=== PATIENT | male | born 1955 | race Two or more races ===

== ENCOUNTER 2016-12-16 17:30 | Emergency (ER) | payer MEDICARE, MEDICAID ==
[~2016-12-16] VITALS: Ht 170.2 cm; Wt 59.0 kg
[~2016-12-16 17:30] MED LIST: ASPI-231 PO; CLIN1CAP4 PO; METF-490 PO; PROBTAB12 PO; SULF-35 PO
[2016-12-16 18:21] LABS: Basophils # (auto) 0 uL; Basophils % (auto) 0.9 % (0.0-2.0); Eosinophils # (auto) 0.2 uL; Eosinophils % (auto) 5.1 % (0.0-7.0); Hematocrit 33.4 % (41.0-53.0); Hemoglobin 11.4 g/dL (13.5-17.5); Lymphocytes # (auto) 1.4 uL; Lymphocytes % (auto) 35.8 % (10.0-50.0); Mean Corpuscular Hemoglobin 28.2 pg (28.0-32.0); Mean Corpuscular Hgb Conc. 34.2 g/dL (32.0-36.0); Mean Corpuscular Volume 82.6 fL (80.0-100.0); Mean Platelet Volume 8.1 fL (7.4-10.4); Monocytes # (auto) 0.4 uL; Neutrophils # (auto) 1.9 uL; Neutrophils % (auto) 48.2 % (37.0-80.0); Platelet Count (auto) 285 10^3/uL (140-450); Red Cell Distribution Width 17.1 % (11.6-16.0)
[2016-12-16 18:39] LABS: Albumin 3.3 g/dL (3.4-5.0); BUN/Creatinine Ratio 27.8; Calcium 8.7 mg/dL (8.5-10.1); Potassium 4.3 mmol/L (3.5-5.1)
[2016-12-16 18:42] LABS: Bilirubin, Total 0.3 mg/dL (0.2-1.0)
[2016-12-16] MEDS ORDERED: KETOROLAC TROMETH 60MG/2ML VIAL IM ONE (22:30)
[2016-12-16 22:35] VITALS: BP 122/68
== END 2016-12-16 23:09 | disposition home or self-care (01) ==
LOC: ER 17:33
DX: G44.029 Chronic cluster headache, not intractable (principal); Z59.0 Homelessness; E11.9 Type 2 diabetes mellitus without complications
CPT/HCPCS: 36415; 70450; 80053; 82962; 85025; 96372; 99285; J1885

== ENCOUNTER 2017-01-11 18:18 | Emergency (ER) | payer MEDICARE, MEDICAID ==
[~2017-01-11] VITALS: Ht 170.2 cm; Wt 77.1 kg
[2017-01-11 21:47] LABS: Basophils # (auto) 0 uL; Basophils % (auto) 0.3 % (0.0-2.0); Eosinophils # (auto) 0.1 uL; Eosinophils % (auto) 2.4 % (0.0-7.0); Hematocrit 28.3 % (41.0-53.0); Hemoglobin 9.7 g/dL (13.5-17.5); Lymphocytes # (auto) 1.4 uL; Lymphocytes % (auto) 27.4 % (10.0-50.0); Mean Corpuscular Hgb Conc. 34.4 g/dL (32.0-36.0); Mean Corpuscular Volume 84.3 fL (80.0-100.0); Mean Platelet Volume 7.5 fL (7.4-10.4); Monocytes # (auto) 0.6 uL; Monocytes % (auto) 12.2 % (0.0-12.0); Neutrophils # (auto) 2.9 uL; Neutrophils % (auto) 57.7 % (37.0-80.0); Platelet Count (auto) 325 10^3/uL (140-450); Red Cell Distribution Width 17.2 % (11.6-16.0); White Blood Cell 5.1 10^3/uL (4.4-10.8)
[2017-01-11 22:20] LABS: Albumin 2.8 g/dL (3.4-5.0); Anion Gap 6 (5-15); Aspartate Aminotransferase 8 U/L (15-37); Calcium 8.4 mg/dL (8.5-10.1); Carbon Dioxide 27 mmol/L (21-32); Chloride 106 mmol/L (98-107); GFR African American 104 mL/min; GFR Non-African American 86 mL/min; Glucose 114 mg/dL (74-106); Potassium 3.8 mmol/L (3.5-5.1); Sodium 139 mmol/L (136-145)
[2017-01-11 22:25] LABS: Alkaline Phosphatase 104 U/L (45-117); BUN/Creatinine Ratio 28.7; Bilirubin, Total 0.5 mg/dL (0.2-1.0); Blood Urea Nitrogen 27 mg/dL (7-18)
[2017-01-11 22:28] LABS: B-Type Natriuretic Peptide 22.27 pg/mL (0-100)
[2017-01-11 22:32] LABS: Total Protein 7.5 g/dL (6.4-8.2)
[2017-01-11 22:37] LABS: Temperature: 22.3 C (20.0-25.0)
[2017-01-12 01:53] VITALS: BP 101/60
== END 2017-01-12 02:44 | disposition home or self-care (01) ==
LOC: EDBD 18:18 → ER 18:24
DX: E11.621 Type 2 diabetes mellitus with foot ulcer (principal); L97.519 Non-pressure chronic ulcer of other part of right foot with unspecified severity; Z89.512 Acquired absence of left leg below knee; Z59.0 Homelessness
CPT/HCPCS: 36415; 71020; 73620; 80053; 82962; 83036; 83605; 83880; 84484; 85025; 87077; 87186; 87205; 93005

== ENCOUNTER 2017-01-14 20:25 | Inpatient (IN) | payer MEDICARE, MEDICAID ==
[~2017-01-14] VITALS: Ht 165.1 cm; Wt 58.3 kg
[2017-01-15] MEDS ORDERED: ONDANSETRON HCL 4 MG/2 ML VIAL IV ONE (00:45)
[2017-01-15] MEDS ORDERED: ceFAZolin 1GM/50ML D5W 100 ML IV ONE (00:45)
[2017-01-15] MEDS ORDERED: HYDROmorphone HCL 2 MG/ML VL IV ONE (00:45)
[2017-01-15] MEDS ORDERED: TETANUS-DIPTH-ACEL PERTUSSIS 0.5ML SYRG IM ONE (00:45)
[2017-01-15] MEDS ORDERED: LIDOCAINE W/ EPINEPHRINE 1% 20ML VIAL ONE (01:08)
[2017-01-15] MEDS ORDERED: LIDOCAINE W/ EPINEPHRINE 1% 20ML VIAL SC ONE (02:00)
[2017-01-15] MEDS: NEOMYCIN-BACITRACIN-POLYM 15GM TOP OINT TOP SCH ×3 (02:33→21:43)
[2017-01-15 04:13] LABS: Basophils # (auto) 0.1 uL; Basophils % (auto) 1.2 % (0.0-2.0); Eosinophils # (auto) 0.1 uL; Eosinophils % (auto) 0.9 % (0.0-7.0); Hematocrit 30.1 % (41.0-53.0); Lymphocytes # (auto) 1.3 uL; Lymphocytes % (auto) 20.3 % (10.0-50.0); Mean Corpuscular Hemoglobin 28.4 pg (28.0-32.0); Mean Corpuscular Hgb Conc. 33.1 g/dL (32.0-36.0); Mean Corpuscular Volume 85.8 fL (80.0-100.0); Mean Platelet Volume 7.6 fL (7.4-10.4); Monocytes # (auto) 0.6 uL; Monocytes % (auto) 9.3 % (0.0-12.0); Neutrophils # (auto) 4.5 uL; Neutrophils % (auto) 68.3 % (37.0-80.0); Platelet Count (auto) 326 10^3/uL (140-450); Red Cell Distribution Width 15.7 % (11.6-16.0); White Blood Cell 6.6 10^3/uL (4.4-10.8)
[2017-01-15 04:55] LABS: Albumin 2.6 g/dL (3.4-5.0); BUN/Creatinine Ratio 32.5; Calcium 8.6 mg/dL (8.5-10.1); Potassium 4.6 mmol/L (3.5-5.1)
[2017-01-15 04:58] LABS: Bilirubin, Total 0.3 mg/dL (0.2-1.0); Total Protein 7.3 g/dL (6.4-8.2)
[2017-01-15] MEDS ORDERED: TEMAZEPAM 15 MG CAP PO PRN (05:45)
[2017-01-15] MEDS ORDERED: HYDROcodone-ACET 5/325MG TAB PO PRN (05:45)
[2017-01-15] MEDS ORDERED: ONDANSETRON HCL 4 MG/2 ML VIAL IV PRN (05:45)
[2017-01-15] MEDS ORDERED: DEXTROSE (50%) 50ML SYRG IV PRN (05:45)
[2017-01-15] MEDS: ACCU-CHEK COMFORT CURVE STRIP VI SCH ×4 (06:17→22:09)
[2017-01-15] MEDS: GABAPENTIN 100 MG CAP PO SCH ×3 (06:17→21:40)
[2017-01-15] MEDS: InsuLIN REG 1unit/0.01ml Soln (100units/ml) SC SCH ×4 (06:22→22:10)
[2017-01-15 09:00] VITALS: BP 115/70
[2017-01-15] MEDS: DOXYCYCLINE 100 MG TAB/CAP PO SCH ×2 (09:54→21:43)
[2017-01-15] MEDS: metFORMIN HYDROCHLORIDE 500 MG TAB PO SCH ×2 (09:55→18:08)
[2017-01-15] MEDS: FAMOTIDINE 20 MG TAB PO SCH ×2 (09:55→21:40)
[2017-01-15] MEDS: MIDODRINE HCL 10 MG TAB PO SCH ×2 (09:56→21:41)
[2017-01-15] MEDS: ENOXAPARIN SOD 40 MG/0.4 ML SYRINGE SC SCH (09:57)
[2017-01-15] MEDS ORDERED: NEOMYCIN-BACITRACIN-POLYM 15GM TOP OINT TOP SCH (10:00)
[2017-01-15] MEDS ORDERED: ENOXAPARIN SOD 30 MG/0.3 ML SYRINGE SC SCH (10:00)
[2017-01-15] MEDS ORDERED: VANCOMYCIN PER PHARMACY 0 MG IV SCH (12:45)
[2017-01-15 13:38] VITALS: BP 127/66
[2017-01-15] MEDS: VANCOMYCIN 1GM/250ML D5W 250 ML IV SCH (17:00)
[2017-01-15 17:02] VITALS: BP 120/85
[2017-01-15] MEDS: Boost Glucose Control 8 Ounces PO SCH ×2 (18:08→21:40)
[2017-01-15 20:00] VITALS: BP 138/70
[2017-01-15] MEDS: ATORVASTATIN 20 MG TAB PO SCH (21:40)
[2017-01-15 22:00] VITALS: BP 138/70
[2017-01-16] VITALS (8 sets, daily range): BP systolic 102–118; BP diastolic 51–62
[2017-01-16] MEDS: VANCOMYCIN 1GM/250ML D5W 250 ML IV SCH ×2 (03:57→14:00)
[2017-01-16 05:20] LABS: Basophils # (auto) 0 uL; Basophils % (auto) 0.4 % (0.0-2.0); Eosinophils # (auto) 0.1 uL; Eosinophils % (auto) 1.6 % (0.0-7.0); Hematocrit 27.9 % (41.0-53.0); Hemoglobin 9.5 g/dL (13.5-17.5); Lymphocytes # (auto) 2.3 uL; Lymphocytes % (auto) 29.5 % (10.0-50.0); Mean Corpuscular Hemoglobin 29.1 pg (28.0-32.0); Mean Corpuscular Volume 85.8 fL (80.0-100.0); Mean Platelet Volume 7.8 fL (7.4-10.4); Monocytes # (auto) 0.9 uL; Monocytes % (auto) 11.5 % (0.0-12.0); Neutrophils # (auto) 4.4 uL; Platelet Count (auto) 328 10^3/uL (140-450); Red Cell Distribution Width 16.5 % (11.6-16.0); White Blood Cell 7.7 10^3/uL (4.4-10.8)
[2017-01-16] MEDS: Boost Glucose Control 8 Ounces PO SCH ×4 (05:43→22:11)
[2017-01-16] MEDS: metFORMIN HYDROCHLORIDE 500 MG TAB PO SCH ×2 (05:43→18:27)
[2017-01-16] MEDS: ACCU-CHEK COMFORT CURVE STRIP VI SCH ×3 (05:43→18:28)
[2017-01-16] MEDS: GABAPENTIN 100 MG CAP PO SCH ×3 (05:43→22:11)
[2017-01-16] MEDS: InsuLIN REG 1unit/0.01ml Soln (100units/ml) SC SCH ×3 (05:44→18:28)
[2017-01-16 06:11] LABS: Albumin 2.5 g/dL (3.4-5.0); BUN/Creatinine Ratio 36.9; Bilirubin, Total 0.6 mg/dL (0.2-1.0); Calcium 8.5 mg/dL (8.5-10.1); Potassium 4.5 mmol/L (3.5-5.1); Total Protein 7.2 g/dL (6.4-8.2)
[2017-01-16] MEDS: NEOMYCIN-BACITRACIN-POLYM 15GM TOP OINT TOP SCH ×2 (10:00→22:12)
[2017-01-16] MEDS: ENOXAPARIN SOD 40 MG/0.4 ML SYRINGE SC SCH (10:47)
[2017-01-16] MEDS: MIDODRINE HCL 10 MG TAB PO SCH ×2 (10:47→22:12)
[2017-01-16] MEDS: FAMOTIDINE 20 MG TAB PO SCH ×2 (10:47→22:11)
[2017-01-16] MEDS: DOXYCYCLINE 100 MG TAB/CAP PO SCH ×2 (10:47→22:11)
[2017-01-16] MEDS ORDERED: ALBUTEROL SULF 2.5 MG/0.5ML(0.5%) NEB SOLN NEB PRN (17:00)
[2017-01-16 19:38] LABS: Urine Bilirubin Negative (Negative); Urine Blood Negative /uL (Negative); Urine Color Yellow (Yellow); Urine Glucose Normal (Normal); Urine Ketone Negative (Negative); Urine Nitrite Negative (Negative); Urine RBC <1 /hpf (0 - 3); Urine Sperm PRESENT /hpf (None Seen); Urine Squamous Epithelial Cell FEW /hpf (<5); Urine Urobilinogen Normal (Negative)
[2017-01-16] MEDS: ACETAMINOPHEN 325 MG TAB PO PRN (20:39)
[2017-01-16] MEDS: ATORVASTATIN 20 MG TAB PO SCH (22:11)
[2017-01-17] MEDS: ACCU-CHEK COMFORT CURVE STRIP VI SCH ×4 (00:18→18:00)
[2017-01-17] MEDS: InsuLIN REG 1unit/0.01ml Soln (100units/ml) SC SCH ×4 (00:20→18:19)
[2017-01-17] MEDS: VANCOMYCIN 1GM/250ML D5W 250 ML IV SCH (01:49)
[2017-01-17 05:00] VITALS: BP 114/61
[2017-01-17] MEDS: GABAPENTIN 100 MG CAP PO SCH ×2 (06:20→13:42)
[2017-01-17] MEDS: Boost Glucose Control 8 Ounces PO SCH ×3 (06:26→17:59)
[2017-01-17 06:42] LABS: Albumin 2.5 g/dL (3.4-5.0); BUN/Creatinine Ratio 40.8; Bilirubin, Total 0.4 mg/dL (0.2-1.0); Potassium 4.2 mmol/L (3.5-5.1); Total Protein 7.6 g/dL (6.4-8.2)
[2017-01-17 06:43] LABS: Basophils # (auto) 0 uL; Basophils % (auto) 0.3 % (0.0-2.0); Eosinophils # (auto) 0.3 uL; Eosinophils % (auto) 4.7 % (0.0-7.0); Hematocrit 28.5 % (41.0-53.0); Hemoglobin 9.7 g/dL (13.5-17.5); Lymphocytes # (auto) 1.8 uL; Lymphocytes % (auto) 28.7 % (10.0-50.0); Mean Corpuscular Hemoglobin 28.8 pg (28.0-32.0); Mean Corpuscular Volume 84.9 fL (80.0-100.0); Mean Platelet Volume 7.7 fL (7.4-10.4); Monocytes # (auto) 0.7 uL; Monocytes % (auto) 11.7 % (0.0-12.0); Neutrophils # (auto) 3.4 uL; Neutrophils % (auto) 54.6 % (37.0-80.0); Platelet Count (auto) 337 10^3/uL (140-450); Red Cell Distribution Width 15.7 % (11.6-16.0); White Blood Cell 6.2 10^3/uL (4.4-10.8)
[2017-01-17] MEDS: metFORMIN HYDROCHLORIDE 500 MG TAB PO SCH ×2 (06:43→18:00)
[2017-01-17 08:00] VITALS: BP 116/66
[2017-01-17 08:16] VITALS: BP 116/66
[2017-01-17] MEDS: ENOXAPARIN SOD 40 MG/0.4 ML SYRINGE SC SCH (10:43)
[2017-01-17] MEDS: FAMOTIDINE 20 MG TAB PO SCH (10:44)
[2017-01-17] MEDS: DOXYCYCLINE 100 MG TAB/CAP PO SCH (10:44)
[2017-01-17] MEDS: MIDODRINE HCL 10 MG TAB PO SCH (10:44)
[2017-01-17] MEDS: NEOMYCIN-BACITRACIN-POLYM 15GM TOP OINT TOP SCH (10:52)
[2017-01-17 12:34] VITALS: BP 114/62
[2017-01-17] MEDS ORDERED: VANCOMYCIN 750 MG in D5W 5% 250 ML IV SCH (14:00)
[2017-01-17 16:33] VITALS: BP 137/78
[2017-01-17] MEDS: ACETAMINOPHEN 325 MG TAB PO PRN (17:17)
[2017-01-17] MEDS ORDERED: [UNRECOGNIZED DRUG - CODE] XX ×2 (19:28→19:29)
== END 2017-01-17 21:55 | disposition home or self-care (01) | DRG 177 ==
LOC: ER 20:35 → OVERFLOW 20:36 → CENTRAL 01-15 08:07
PROVIDERS: ADMIT Nurse Practitioner; ATTEND Internal Medicine
PROC: 0HQKXZZ Repair Right Lower Leg Skin, External Approach (ICD-10-PCS; principal; 2017-01-14)
DX: J69.0 Pneumonitis due to inhalation of food and vomit (principal); E43 Unspecified severe protein-calorie malnutrition; S81.811A Laceration without foreign body, right lower leg, initial encounter; E78.5 Hyperlipidemia, unspecified; N18.2 Chronic kidney disease, stage 2 (mild); I12.9 Hypertensive chronic kidney disease with stage 1 through stage 4 chronic kidney disease, or unspecified chronic kidney disease; H91.3 Deaf nonspeaking, not elsewhere classified; J32.0 Chronic maxillary sinusitis; M25.78 Osteophyte, vertebrae; T14.8 Other injury of unspecified body region; M43.19 Spondylolisthesis, multiple sites in spine; M48.02 Spinal stenosis, cervical region; E11.22 Type 2 diabetes mellitus with diabetic chronic kidney disease; E11.21 Type 2 diabetes mellitus with diabetic nephropathy; Z59.0 Homelessness; V49.9XXA Car occupant (driver) (passenger) injured in unspecified traffic accident, initial encounter; Z89.512 Acquired absence of left leg below knee; Y93.89 Activity, other specified; Z79.82 Long term (current) use of aspirin; Y92.89 Other specified places as the place of occurrence of the external cause; Z68.21 Body mass index [BMI] 21.0-21.9, adult
CPT/HCPCS: 12004; 36415; 70450; 71010; 72125; 74176; 80053; 80202; 81001; 82962; 85025; 87040; 87070; 87086; 87205; 90471; 90715; 96365; 96375; J0690; J1815; J2405; J7060

== ENCOUNTER 2017-07-18 14:17 | Emergency (ER) | payer MEDICARE, MEDICAID ==
[~2017-07-18] VITALS: Ht 157.5 cm; Wt 49.9 kg
[~2017-07-18 14:17] MED LIST changes: +TAM04C PO; +[UNRECOGNIZED DRUG - CODE] XX
[2017-07-18 15:47] VITALS: BP 112/82
== END 2017-07-18 17:29 | disposition home or self-care (01) ==
LOC: ER 14:17 → EDBD 14:17 → ER 17:29
DX: F41.9 Anxiety disorder, unspecified (principal); E11.9 Type 2 diabetes mellitus without complications; Z79.899 Other long term (current) drug therapy; Z89.512 Acquired absence of left leg below knee

== ENCOUNTER 2018-11-17 14:20 | Emergency (ER) | payer MEDICARE, MEDICAID ==
[~2018-11-17] VITALS: Ht 170.2 cm; Wt 48.5 kg
[2018-11-17 14:31] VITALS: BP 102/71
[2018-11-17 14:59] LABS: Basophils # (auto) 0 uL; Basophils % (auto) 0.6 % (0.0-2.0); Eosinophils # (auto) 0.2 uL; Eosinophils % (auto) 6.1 % (0.0-7.0); Hematocrit 32.7 % (41.0-53.0); Hemoglobin 11.1 g/dL (13.5-17.5); Lymphocytes # (auto) 1.4 uL; Lymphocytes % (auto) 39.4 % (10.0-50.0); Mean Corpuscular Hemoglobin 30.2 pg (28.0-32.0); Mean Corpuscular Hgb Conc. 34.1 g/dL (32.0-36.0); Mean Corpuscular Volume 88.7 fL (80.0-100.0); Monocytes # (auto) 0.4 uL; Monocytes % (auto) 12.4 % (0.0-12.0); Neutrophils # (auto) 1.4 uL; Neutrophils % (auto) 41.5 % (37.0-80.0); Nucleated Red Blood Cells % 0.1 %; Platelet Count (auto) 205 10^3/uL (140-450); Red Blood Cells 3.68 10^6/uL (4.5-5.90); White Blood Cell 3.5 10^3/uL (4.4-10.8)
[2018-11-17 15:09] LABS: Albumin 3.2 g/dL (3.4-5.0); Anion Gap 6 (5-15); BUN/Creatinine Ratio 21.9; Blood Urea Nitrogen 32 mg/dL (7-18); Calcium 7.8 mg/dL (8.5-10.1); Carbon Dioxide 27 mmol/L (21-32); Chloride 106 mmol/L (98-107); GFR Non-African American 52 mL/min; Glucose 98 mg/dL (74-106); Potassium 4.3 mmol/L (3.5-5.1); Sodium 139 mmol/L (136-145)
[2018-11-17 15:11] LABS: GFR African American > 60 mL/min
[2018-11-17 15:12] LABS: Alanine Aminotransferase 26 U/L (16-61); Alkaline Phosphatase 135 U/L (45-117); Aspartate Aminotransferase 14 U/L (15-37); Bilirubin, Total 0.3 mg/dL (0.2-1.0); Total Protein 7.2 g/dL (6.4-8.2)
[2018-11-17 15:13] LABS: INR 0.93 (0.9-1.15)
== END 2018-11-17 16:41 | disposition home or self-care (01) ==
LOC: ER 14:20 → EDBD 14:20 → ER 16:41
DX: R07.89 Other chest pain (principal); E11.9 Type 2 diabetes mellitus without complications; I10 Essential (primary) hypertension; Z79.82 Long term (current) use of aspirin; Z79.2 Long term (current) use of antibiotics; Z79.899 Other long term (current) drug therapy
CPT/HCPCS: 36415; 80053; 83880; 84484; 85025; 85610; 85730